=== PATIENT | female | born 1960 | race Caucasian/White ===

== ENCOUNTER 2022-01-24 12:30 | Outpatient (RCR) | payer BC, SELFPAY | END 2023-01-17 23:59 | disposition home or self-care (01) | PROVIDERS: Visit Provider Physician Assistant Medical | DX: R53.1 Weakness (principal); R26.9 Unspecified abnormalities of gait and mobility; Z51.89 Encounter for other specified aftercare | CPT/HCPCS: 97110; 97112; 97140; 97535; X5282 ==

== ENCOUNTER 2022-09-03 13:34 | Outpatient (CLI) | payer BC, SELFPAY ==
--- NOTE | 2022-09-03 13:40 | CRLHL7_ITS ---
For Patients: As a result of the Century Cures Act, medical imaging exams and procedure reports are released immediately into your electronic medical record. You may view this report before your referring provider. If you have questions, please contact your health care provider. BILATERAL SCREENING MAMMOGRAM WITH COMPUTER-AIDED DETECTION AND TOMOSYNTHESIS TECHNIQUE: CC and MLO views were obtained. These mammographic images have been obtained using full-field digital technique. These mammographic images were interpreted with the benefit of computer-aided detection. Breast Tomosynthesis was used in this interpretation. COMPARISON FILM: 05/04/20, 02/25/19, 01/02/18 FINDINGS: There are scattered areas of fibroglandular density IMPRESSION: There is no radiographic evidence for malignancy. ASSESSMENT: BI-RADS Category 1: Negative RECOMMENDATION: Routine screening mammogram in 1 year. A lay language report of this examination will be provided to the patient. Bayron Miles M.D. Diagnostic Radiologist [email or web address] Transcribed: 1:49 p.mAlexandria hall/Dictated by: Bayron Miles MD @ 09/04/2022 9:52:00 AM (Electronically Signed)
== END 2022-09-03 13:35 | disposition home or self-care (01) ==
LOC: MAMMO 13:35
PROVIDERS: PCP Physician Assistant Medical; Visit Provider Physician Assistant Medical
DX: Z12.31 Encounter for screening mammogram for malignant neoplasm of breast (principal)
CPT/HCPCS: 77063; 77067

== ENCOUNTER 2023-03-12 10:00 | Outpatient (RCR) | payer BC, SELFPAY | END 2023-06-12 13:39 | disposition home or self-care (01) | PROVIDERS: PCP Physician Assistant Medical; Visit Provider Family Medicine | DX: M54.6 Pain in thoracic spine (principal); R07.81 Pleurodynia; Z74.09 Other reduced mobility; R53.1 Weakness; Z51.89 Encounter for other specified aftercare | CPT/HCPCS: 97110; 97140; 97161 ==

== ENCOUNTER 2023-10-14 14:32 | Outpatient (CLI) | payer BC, SELFPAY ==
--- NOTE | 2023-10-14 14:40 | MM_ITS ---
Patient: ALMA BEAM Facility:?[facility] Patient ID:?[id number] Site Patient ID:?[id number]. Site :?[id number] Study:?XRay-Breast Bilateral 3D W/CAD-10/14/2023 2:57:20 PM Ordering Physician:?Rebekah Rivas Final Report: BILATERAL SCREENING MAMMOGRAM WITH COMPUTER-AIDED DETECTION AND TOMOSYNTHESIS TECHNIQUE: CC and MLO views were obtained. These mammographic images have been obtained using full-field digital technique. These mammographic images were interpreted with the benefit of computer-aided detection. Breast Tomosynthesis was used in this interpretation. COMPARISON FILM: 09/03/22, 05/04/20, 02/25/19. FINDINGS: There are scattered areas of fibroglandular density. IMPRESSION: There is no radiographic evidence for malignancy. ASSESSMENT: BI-RADS Category 1: Negative RECOMMENDATION: Routine screening mammogram in 1 year. A lay language report of this examination will be provided to the patient. Bayron Miles M.D. Diagnostic Radiologist [email or web address] DSM/sp R& Transcribed: 2:13 p.m. SP/Dictated by: Bayron Miles MD @ 10/15/2023 8:42:00 AM Signed by:?Bayron Miles MD @10/15/2023 2:34:23 PM (Electronic Signature)
== END 2023-10-14 14:33 | disposition home or self-care (01) ==
LOC: MAMMO 14:33
PROVIDERS: PCP Physician Assistant Medical; Visit Provider Physician Assistant Medical
DX: Z12.31 Encounter for screening mammogram for malignant neoplasm of breast (principal)
CPT/HCPCS: 77063; 77067

== ENCOUNTER 2024-12-28 07:55 | Outpatient (CLI) | payer BC, SELFPAY ==
--- NOTE | 2024-12-28 08:15 | CRLHL7_ITS ---
For Patients: As a result of the Century Cures Act, medical imaging exams and procedure reports are released immediately into your electronic medical record. You may view this report before your referring provider. If you have questions, please contact your health care provider. INDICATION: BILATERAL SCREENING MAMMOGRAM, ASYMPTOMATIC 64 Y/O FEMALE COMPARISON: 10/04/2023, 09/03/2022, 05/04/2020 TECHNIQUE: Digital mammogram in CC and MLO projections including computer-aided detection (CAD) and tomosynthesis. BREAST COMPOSITION: There are scattered areas of fibroglandular density. FINDINGS: No suspicious findings. ASSESSMENT: BI-RADS 1 Negative RECOMMENDATION: Annual screening mammogram. A lay language report of this examination will be provided to the patient. Dictated by: Bayron Miles MD @ 12/28/2024 09:04:33 (Electronically Signed)
--- OUTSIDE RECORDS SUMMARY | 2024-12-29 02:05 | XMS_ITS | Clinical Summary ---
Author Organization [employer] Address [address] [place] [address] Care Team Providers Care Portrait Studio Photographer Name Role Phone Rebekah Rivas Primary Care Provider Beni Enrique MD Unavailable [phone] Caleb Cheatham MD Unavailable [phone] Allergies Active Allergy Reactions Criticality Noted Date Comments Clavulanic Acid Nausea And Vomiting 12/09/2015 Codeine Nausea And Vomiting 11/01/2006 Pill form only. Patient can take syrup Lisinopril Cough High 11/09/2020 Tree Nuts Anaphylaxis High 12/09/2015 Medications MULTIVITAMIN ORAL None Entered Active fluticasone (50 mcg per actuation) nasal solution (FLONASE)Indicat ions:Seasonal allergic rhinitis, unspecified allergic rhinitis trigger Inhale 1 [place] into both nostrils once daily. 3 Bottle 3 10/23/19 17 Active ALPRAZolam (XANAX) 0.5 mg tabletIndication s:Adjustment disorder with mixed disturbance of emotions and conduct Take 1 tablet by mouth 2 times daily if needed for Anxiety or Other (Specify) (sleep). 15 Tablet 1 02/29/20 22 Active albuterol HFA (PRO-AIR; VENTOLIN; PROVENTIL) 90 mcg/actuation inhalerIndicatio ns:COPD exacerbation (HC) INHALE 2 PUFFS BY MOUTH 4 TIMES A DAY NEEDED 6.7 Each 2 02/12/20 23 Active gabapentin 100 mg capsuleIndicatio ns:Neuropathy Take 2 Capsules (200 mg) by mouth two times daily. 360 Capsule 3 11/05/19 25 Active levothyroxine 75 mcg tabletIndication s:Hypothyroidism (acquired) Take 1 Tablet (75 mcg) by mouth before breakfast. Take 1 tablet (75 mcg) 5 days a week 90 Tablet 3 11/05/19 25 Active losartan 100 mg tabletIndication s:Hypertension, unspecified type Take 1 Tablet (100 mg) by mouth once daily. 90 Tablet 3 11/05/19 25 Active omeprazole 40 mg Delayed-Release capsuleIndicatio ns:Gastroesophag eal reflux disease, unspecified whether esophagitis present Take 1 Capsule (40 mg) by mouth once daily. 90 Capsule 3 11/05/19 25 Active rivaroxaban (Xarelto) 20 mg tabletIndication s:Recurrent deep vein thrombosis (DVT) (HC) Take 1 Tablet (20 mg) by mouth once daily with evening meal. 90 Tablet 3 11/05/19 25 Active traZODone 100 mg tabletIndication s:Psychophysiolo gical insomnia Take 2 Tablets (200 mg) by mouth at bedtime. TAKE 1 & 1/2 TO 2 TABLETS BY MOUTH AT BEDTIME. 180 Tablet 1 12/22/19 25 Active amantadine HCL 100 mg tabletIndication s:Tardive dyskinesia Take 1 tablet in the morning and 2 tablets at bedtime. 270 Tablet 1 12/22/19 25 Active ziprasidone 40 mg capsuleIndicatio ns:Bipolar disorder, in full remission, most recent episode depressed (HC) Take 1 Capsule (40 mg) by mouth two times daily with meals. 180 Capsule 1 12/22/19 25 Active traZODone (DESYREL) 100 mg tabletIndication s:Psychophysiolo gical insomnia TAKE 1 & 1/2 TO 2 TABLETS BY MOUTH AT BEDTIME. 180 Tablet 1 06/22/20 24 025 Discontinued(*M edication adjustment) ziprasidone (GEODON) 40 mg capsuleIndicatio ns:Bipolar disorder, in full remission, most recent episode depressed (HC) Take 1 Capsule (40 mg) by mouth two times daily with meals. 180 Capsule 1 06/22/20 24 025 Discontinued(Re order (E-cancel not sent)) amantadine HCL 100 mg tabletIndication s:Tardive dyskinesia Take 1 tablet in the morning and 2 tablets at bedtime. 180 Tablet 10/17/19 25 025 Discontinued amantadine HCL 100 mg tabletIndication s:Tardive dyskinesia TAKE 1 TABLET IN THE MORNING AND 2 TABLETS AT BEDTIME 60 Tablet 2 12/22/19 25 025 Discontinued(Re order (E-cancel not sent)) Active Problems Problem Noted Date Diagnosed Date Controlled substance agreeme nt signed, By Payal Quijano MD, psychiatry on 08.24.2024 / Palomo Kerr LPN 08/24/2024 Overview (08/24/2024): Pneumonitis 07/27/2021 Chronic obstructive pulmonary disease 07/27/2021 Psychophysiological insomnia 03/17/2020 Controlled substance agreement signed 02/02/2020 Overview (02/02/2020): Signed 02/02/2020 at [facility]. Rachelle Allison .................... 02/02/2020 11:01 AM Lumbar facet arthropathy 02/14/2017 Steatosis of liver 09/05/2011 Colon polyp 01/26/2011 Overview (02/15/2023): Colonoscopy 01/2023 multiple TA, repeat in 2 years, propofol Nonalcoholic steatohepatitis (HOOK) 10/13/2009 Hypothyroidism 07/12/2009 Hypertension 07/12/2009 Hyperlipidemia 07/12/2009 Gastroesophageal reflux 07/12/2009 Bipolar disorder, in full re mission, most recent episode depressed 01/20/2007 Resolved Problems Problem Noted Date Diagnosed Date Resolved Date Phlebitis of superficial vei n of right lower extremity 07/27/2021 07/27/2021 Obstruction of parotid duct 07/27/2021 07/27/2021 Drug dependence 05/01/2021 07/19/2021 LUIS (generalized anxiety disorder) 03/17/2020 12/21/2024 Controlled substance agreement signed 10/25/2016 12/21/2021 Overview (10/25/2016): Signed: 07/25/2016 Dr. Payal Quijano / psychiatry Encounters Date Type Department Care Team Description 12/28/2024 Orders Only [facility] Scanner 1 scan: (1-Ord) [facility], SCREENING MAMMO BILAT, 12/28/2024 12/25/2024 Travel 12/21/2024 10:15 AM CDT Office Visit [facility] [address] [place] [address] Payal Quijano MD Follow Up; Medication Management 12/21/2024 Travel 12/19/2024 Refill [facility] [address] [place] [address] Payal Quijano MD Refill Request (Amantadine Hcl) 12/16/2024 Travel 11/30/2024 4:00 PM CDT Orders Only [facility] [address] [place] [address] Lab, [facility] 11/30/2024 Travel 11/19/2024 Orders Only [facility] [address] [place] [address] Caleb Cheatham MD <No scans attached> 11/12/2024 Telephone [facility] [address] [place] [address] Rebekah Rivas PA Referral (Urology ) 11/04/2024 9:10 AM CDT Office Visit [facility] [address] [place] [address] Rebekah Rivas PA Medication Management (All meds) 11/04/2024 Travel 10/30/2024 Travel 10/25/2024 Refill [facility] [address] [place] [address] Rebekah Rivas PA Refill Request (Levothyroxine) 10/15/2024 Refill [facility] [address] [place] [address] Payal Quijano MD Refill Request (Amantadine Hcl) from Last 3 Months Immunizations Immunization Administration Dates Next Due AMB Influenza, IIV3 (Age >=3 years)(Flu Clinic Only) 05/16/2010 COVID-19 vaccine ([employer] 30mcg/0.3mL) PF, MDV 05/01/2021,10/04/2020,09/13/2020 Influenza A (H1N1), Inactivated 07/12/2009 Influenza Virus, Unspecified 02/14/2018 Influenza, IIV3 (Age 6-35 mos) 07/03/2012,2010,07/12/2009 Influenza, IIV3 (Age >=3 years) 05/16/2010 Influenza, IIV4 05/01/2021, 0,03/25/2019,02/14,03/13/2017 Pneumococcal Conj 20-valent (Prevnar 20) 04/15/2024 Pneumococcal Poly,23-Valent (Pneumovax) 07/14/2007 RSV, Recombinant ADJ Reconst ituted (Arexvy 120MCG/0.5mL) 04/15/2024 Tdap 02/02/2020,01/31/2017,07/14/2007 Zoster (Shingrix-RZV, recombinant) 05/01/2021, Zoster (Zostavax-ZVL, live) 08/26/2012 Family History Medical History Relation Name Comments Cancer-breast Maternal Grandmother Cancer-breast Mother Anesthesia Problem Other Blood Disease No Family History Relation Name Status Comments Brother Alive Father Alive Maternal Grandmother Mother Alive Other Social History Tobacco Use Types Packs/Day Years Used Date Smoking Tobacco: Former Cigarettes 1 42.1 0 10/30/1979 - 11/19/2021 Smokeless Tobacco: Never Tobacco Cessation:Counseling Given: Yes Comments:quit 11-19-2021 Alcohol Use Standard Drinks/Week Comments Yes 2 (1 standard drink = 0.6 oz pur e alcohol) occ. PHQ-2 Answer Date Recorded PHQ-2 TOTAL SCORE 0 12/21/2024 Social Connections Answer Date Recorded Do you often feel lonely or isolated from those around you? 0 10/30/2024 Alcohol Use Answer Date Recorded How often do you have a drink containing alcohol ? 0 12/04/2021 Average Number of Drinks Not on file 022 Frequency of Binge Drinking Not on file 11/2021 Financial Resource Strain Answer Date R ecorded Difficulty of Paying Living Expenses 3 10/30/2024 Difficulty of Paying Living Expenses Not on file 10/30/2024 Food Insecurity Answer Date Recorded Do you worry your food will run out before you are able to buy more? 1 10/30/2024 Transportation Needs Answer Date Record ed Does lack of transportation keep you from medica l appointments? 1 10/30/2024 Does lack of transportation keep you from work, meetings or getting things that you need? 1 10/30/2024 Housing Stability Answer Date Recorded What is your housing situation today? 1 10/30/2024 Utilities Answer Date Recorded Do you have trouble paying f or utilities (for example, heat, electricity, water, phone)? 1 10/30/2024 Comments No Sex and Gender Information Value Date Recorded Sex Assigned at Not on file Legal Sex Female 6:14 AM BAGMAN/WOMAN Gender Identity Not on file Sexual Orientation Not on file Travel History Travel Start Travel End [place] 12/02/2024 12/13/2024 Obstetrics History Last Filed Vital Signs Vital Sign Reading Time Taken Comments Blood Pressure 144/89 12/21/2024 10:17 AM CDT Pulse 65 12/21/2024 10:17 AM CDT Temperature 36.7 C (98.1 F) 02/26/2023 8:17 AM CDT Respiratory Rate 16 02/12/2023 12:00 PM CDT Oxygen Saturation 99% 04/15/2024 7:37 AM CDT Inhaled Oxygen Concentration - - Weight 59.9 kg (132 lb) 12/21/2024 10:14 AM CDT Height 167.6 cm (5' 6) 08/24/2024 9:54 AM BAGMAN/WOMAN Body Mass Index 21.31 08/24/2024 9:54 AM BAGMAN/WOMAN Plan of Treatment Upcoming Encounters Date Type Department Care Team (Late st Contact Info) Description 12/30/2024 1:00 PM CDT Ancillary Procedure [facility] [address] [place] [address] 06/21/2025 9:45 AM BAGMAN/WOMAN Office Visit [facility] [address] [place] [address] Payal Quijano MD [address] [place] [address] Health Maintenance Due Date Last Done Comments COVID-19 vaccine series ( season) 2024 05/01/2021, 10/04/2020, 09/13/2020 Colonoscopy through age 75 02/12/202502/12, 02/12/2023, 02/12/2023, Additional history exists Influenza Vaccine (Season Ended) 2025 05/01/2021, 02/02/2020, 03/25/2019, Additional history exists BMI (ht and wt on same day) for age 18+ 08/24/2025 08/24/2024, 04/15/2024, 12/11/2023, Additional history exists Depression screening for age 12+ 12/21/2025 12/21/2024, 08/24/2024, 06/22/2024, Additional history exists Mammogram for age 45-75 12/28/2025 12/29/19, 10/14/2023, 09/03/2022, Additional history exists Pap test for age 21-65 05/01/2026 , 05/01/2021, 09/20/2015, Additional history exists Lipids for age 45-75 11/04/2029 11/04/2024, 07/08/2023, 09/05/2022, Additional history exists Tetanus booster 02/01/2030 02/02/2020, 080 08/2016, 07/14/2007 Hepatitis C screening for age 18-79 Completed 08/18/2019, 04/08/2018 Tdap Completed 02/02/2020, 080 08/2016, 07/14/2007 Zoster (shingles) series for age 50+ Completed 05/01/2021, 07/15/2018, 08/26/2012 HIV for age 15-65 Completed 02/26/2023 Pneumococcal series for age 50+ Completed 04/15/2024, 07/14/2007 RSV vaccine for adults or Completed 04/15/2024 Hepatitis B series for 19+ Aged Out N o longer eligible based on patient's age to complete this topic Procedures Procedure Name Priority Date/Time Associated Diagnosis Comments SCAN-MAMMOGRAPHY REPORT 12/28/2024 12:00 AM CDT PROTEIN ELP SERUM W REFLEX Routine 11/30/2024 4:01 PM CDT CKD stage 3a, GFR 45-59 ml/min (HC) Hypercalcemia UA W/ SEDIMENT EXAM REFLEXED PER CRITERIA Routine 11/30/2024 4:01 PM CDT CKD stage 3a, GFR 45-59 ml/min (HC) PTH,INTACT Routine 11/30/2024 3:51 PM CDT Hypercalcemia CALCITRIOL(1 25 DI OH VIT D) Routine 11/30/2024 3:51 PM CDT Hypercalcemia VITAMIN D 25 (DEFICIENCY) Routine 11/30/2024 3:51 PM CDT Hypercalcemia TSH Routine 11/04/2024 9:46 AM CDT LIPID PANEL W REFLEX MEASURED LDL Routine 11/04/2024 9:46 AM CDT Screening cholesterol level BASIC METABOLIC PANEL Routine 11/04/2024 9:46 AM CDT Hypertension, unspecified type ANTI HIV 1/2 Routine 02/26/2023 9:19 AM CDT Encounter for screening for human immunodeficiency virus (HIV) COLONOSCOPY 02/12/2023 10:01 AM CDT HPV HIGH RISK Routine 05/01/2021 11:12 AM CDT Screening for cervical cancer ANTI HCV Routine 08/18/2019 12:04 PM BAGMAN/WOMAN Neoplasm of uncertain behavior of skin Psoriasis vulgaris Encounter for long-term (current) use of other medications from Last 3 Months or Most Recently Relevant to Health Maintenance Results * SCAN-MAMMOGRAPHY REPORT (12/28/2024 12:00 AM CDT) Anatomical Region Laterality Modality Other us Scanner OTHER Final Result * PROTEIN ELP SERUM W REFLEX (11/30/2024 4:01 PM CDT) ELP,ALBUMIN 4.28 3.31 - 5.31 g/dL 12/02/2024 1:24 PM CDT [facility] ELP,ALPHA 1 0.24 0.19 - 0.42 g/dL 12/02/2024 1:24 PM CDT [facility] ELP,ALPHA 2 0.55 0.44 - 1.03 g/dL 12/02/2024 1:24 PM CDT [facility] ELP,GAMMA 0.69 0.59 - 1.46 g/dL 12/02/2024 1:24 PM CDT [facility] ELP,BETA 0.63 0.52 - 1.05 g/dL 12/02/2024 1:24 PM CDT [facility] ELP INTERP,SERUM Normal electrophoretic pattern. No monoclonal protein detected. Interpreted and electronically signed by: Janee Prater MD 12/02/2024 1:24 PM CDT [facility] PROTEIN,TOTA L 6.4 6.0 - 8.0 g/dL 12/02/2024 1:24 PM CDT [facility] Blood BLOOD SPECIMEN / Unknown [facility] / Unknown 11/30/2024 4:01 PM CDT 11/30/2024 4:01 PM CDT us Caleb Cheatham MD CHEMISTRY Final Resu lt [facility] [address] [place] [address], * (ABNORMAL) ROUTINE URINALYSIS (11/30/2024 4:01 PM CDT) COLOR Yellow Yellow Color 11/30/2024 11:35 PM CDT [facility] CLARITY Clear Clear Clarity 11/30/2024 11:35 PM CDT [facility] SPECIFIC GRAVITY,URINE <=1.005(A) 1.010, 1.015, 1.020, 1.025 11/30/2024 11:35 PM CDT [facility] PH,URINE 6.5 6.0, 7.0, 8.0, 5.5, 6.5, 7.5, 8.5 11/30/2024 11:35 PM CDT [facility] UROBILINOGEN, QUALITATIVE Normal Normal EU/dl 11/30/2024 11:35 PM CDT [facility] PROTEIN, URINE Negative Negative mg/dL 11/30/2024 11:35 PM CDT [facility] GLUCOSE, URINE Negative Negative mg/dL 11/30/2024 11:35 PM CDT [facility] KETONES,URINE Negative Negative mg/dL 11/30/2024 11:35 PM CDT [facility] BILIRUBIN,URI NE Negative Negative 11/30/2024 11:35 PM CDT [facility] OCCULT BLOOD,URINE Negative Negative 11/30/2024 11:35 PM CDT [facility] NITRITE Negative Negative 11/30/2024 11:35 PM CDT [facility] LEUKOCYTE ESTERASE Negative Negative 11/30/2024 11:35 PM CDT [facility] Urine URINE SPECIMEN / Unknown Non-Blood / Unknown 11/30/2024 4:01 PM CDT 11/30/2024 4:01 PM CDT us Caleb Cheatham MD URINE Final Resu lt [facility] [address] [place] [address], * CALCITRIOL(1 25 DI OH VIT D) (11/30/2024 3:51 PM CDT) VITAMIN D, 1,25 (OH)2, TOTAL 42 18 - 72 pg/mL [facility] VITAMIN D3, 1,25 (OH)2 42 pg/mL [facility] VITAMIN D2, 1,25 (OH)2 <8 pg/mL [facility] Comment: (Note) Vitamin D3, 1,25(OH)2 indicates both endogenous production and supplementation. Vitamin D2, 1,25(OH)2 is an indicator of exogenous sources, such as diet or supplementation. Interpretation and therapy are based on measurement of Vitamin D, 1,25 (OH)2, Total. This test was developed, and its analytical performance characteristics have been determined by [facility]. It has not been cleared or approved by the FDA. This assay has been validated pursuant to the CLIA regulations and is used for clinical purposes. For additional information, please refer to http://education.[employer]/faq/SBR110 (This link is being provided for informational/educational purposes only.) [facility] [address] [place] [address],[address] [place] [address] Betzaida Chadwick MD, PhD Blood BLOOD SPECIMEN / Unknown 11/30/2024 3:51 PM CDT 11/30/2024 3:51 PM CDT Caleb Cheatham MD SEND OUTS Final Resu lt [facility] [address] [place] [id number], [facility] [address] [place] [address], [address] [place] [address] * (ABNORMAL) VITAMIN D 25 (DEFICIENCY) (11/30/2024 3:51 PM CDT) VITAMIN D,25-OH,TOTAL,IA 28(L) 30 - 100 ng/mL [facility] Comment: Vitamin D Status 25-OH Vitamin D: Deficiency: <20 ng/mL Insufficiency: 20 - 29 ng/mL Optimal: > or = 30 ng/mL For 25-OH Vitamin D testing on patients on D2-supplementation and patients for whom quantitation of D2 and D3 fractions is required, the QuestAssureD(TM) 25-OH VIT D, (D2,D3), LC/MS/MS is recommended: order code [id number] (patients >2yrs). See Note 1 Note 1 For additional information, please refer to http://education.[employer]/faq/ISJ891 (This link is being provided for informational/ educational purposes only.) Blood BLOOD SPECIMEN / Unknown 11/30/2024 3:51 PM CDT 11/30/2024 3:51 PM CDT Caleb Cheatham MD SEND OUTS Final Resu lt Performing Organization Address City/[facility]/ZIP Co de Phone Number [facility] [address] [place] [address], [place] [phone] [facility] [address] [place] [address] * PTH,INTACT (11/30/2024 3:51 PM CDT) PARATHYROID HORMONE, INTACT 72 16 - 77 pg/mL [facility] Comment: Interpretive Guide Intact PTH Calcium ------- Normal Parathyroid Normal Normal Hypoparathyroidism Low or Low Normal Low Hyperparathyroidism Primary Normal or High High Secondary High Normal or Low Tertiary High High Non-Parathyroid Hypercalcemia Low or Low Normal High CALCIUM 10.2 8.6 - 10.4 mg/dL [facility] Blood BLOOD SPECIMEN / Unknown 11/30/2024 3:51 PM CDT 11/30/2024 3:51 PM CDT Caleb Cheatham MD SEND OUTS Final Resu lt Performing Organization Address [facility]/ZIP Co de Phone Number [facility] [address] [place] [address], [place] [phone] [facility] [address] [place] [address] * (ABNORMAL) LIPID PANEL W REFLEX MEASURED LDL (11/04/2024 9:46 AM CDT) CHOLESTEROL, TOTAL 214(H) <200 mg/dL [facility] HDL CHOLESTEROL 95 > OR = 50 mg/dL [facility] TRIGLYCERIDES 64 <150 mg/dL [facility] LDL-CHOLESTEROL 104(H) mg/dL (calc) [facility] Comment: Reference range: <100 Desirable range <100 mg/dL for primary prevention; <70 mg/dL for patients with CHD or diabetic patients with > or = 2 CHD risk factors. LDL-C is now calculated using the Dominga calculation, which is a validated novel method providing better accuracy than the Friedewald equation in the estimation of LDL-C. Moi SS et al. MAUREEN. 2013;310(19): 2825-9728 (http://education.[employer]/faq/AZQ043) CHOL/HDLC RATIO 2.3 <5.0 (calc) [facility] NON HDL CHOLESTEROL 119 <130 mg/dL (calc) [facility] Comment: For patients with diabetes plus 1 major ASCVD risk factor, treating to a non-HDL-C goal of <100 mg/dL (LDL-C of <70 mg/dL) is considered a therapeutic option. Blood BLOOD SPECIMEN / Unknown 11/04/2024 9:46 AM CDT 11/04/2024 9:47 AM CDT Rebekah BRUNO CHEMISTRY Final R esult [facility] [address] [place] [address], [facility] [address] [place] [address] * TSH (11/04/2024 9:46 AM CDT) Pathologist [facility] TSH 0.59 0.40 - 4.50 mIU/L [facility] 11/04/2024 9:46 AM CDT 11/04/2024 9:47 AM CDT Rebekah BRUNO CHEMISTRY Final R esult Performing Organization Address City/[facility]/ZIP Co de Phone Number [facility] [address] [place] [address], [place] [phone] [facility] [address] [place] [address] * (ABNORMAL) BASIC METABOLIC PANEL (11/04/2024 9:46 AM CDT) [facility] GLUCOSE 95 65 - 99 mg/dL [facility] Comment: Fasting reference interval UREA NITROGEN (BUN) 18 7 - 25 mg/dL [facility] CREATININE 1.19(H) 0.50 - 1.05 mg/dL [facility] EGFR 51(L) > OR = 60 mL/min/1.7 3m2 [facility] BUN/CREATININE RATIO 15 6 - 22 (calc) [facility] SODIUM 143 135 - 146 mmol/L [facility] POTASSIUM 4.5 3.5 - 5.3 mmol/L [facility] CHLORIDE 107 98 - 110 mmol/L [facility] CARBON DIOXIDE 28 20 - 32 mmol/L [facility] ELECTROLYTE BALANCE 8 7 - 17 mmol/L (calc) [facility] CALCIUM 10.2 8.6 - 10.4 mg/dL [facility] Blood BLOOD SPECIMEN / Unknown 11/04/2024 9:46 AM CDT 11/04/2024 9:47 AM CDT Rebekah BRUNO CHEMISTRY Final R esult [facility] [address] [place] [address], [place] [phone] [facility] [address] [place] [address] * ANTI HIV 1/2 [26905.0] (02/26/2023 9:19 AM CDT) HIV-1/HIV-2 SCREEN Non-Reacti ve Non-Reacti ve 02/27/2023 3:25 AM CDT [facility] Comment:HIV-1 p24 and HIV-1/ HIV-2 Ab Not Detected. Blood BLOOD SPECIMEN / Unknown Venipuncture / Unknown 02/26/2023 9:19 AM CDT 02/26/2023 9:20 AM CDT us Ginette BRUNO SEND OUTS Final Res ult [facility] [address] [place] [address], [place] * COLONOSCOPY (02/12/2023 10:01 AM CDT) 02/12/2023 10:0 1 AM CDT Narrative Transcriptions Moi Washington MD - 03/15/2023 9:38 AM CDT Patient Name: Anaya Beam Procedure Date: 02/12/2023 Gender: Female Date of : 1960 Admit Type: Outpatient Procedure: Colonoscopy Proceduralist: Moi Washington MD , Mary Santos (Nurse), Vicki Denton (Nurse) Referring MD: Rebekah Rivas Indications/Pre-Op Diagnosis: Positive fecal immunochemical test, Last colonoscopy: August 2015, Personal history of colonic polyps Medications: Fentanyl 100 micrograms IV, Midazolam 2 mgIV, The level of sedation administered wasmoderate Procedure Description: The patient had risks, benefits and alternatives explained to andgave informed consent. The patient had a stable cardiopulmonary status and judged an adequate candidate for conscious sedation. The PCF-H190L [id number] was passed through the anus and advanced to the cecum, identified by appendiceal orifice and ileocecal valve. The colonoscopy was performed without difficulty. The patient toleratedthe procedure well. The quality of the bowel preparation was good. The ileocecal valve, appendiceal orifice, and rectum were photographed. Complications: No immediate complications. Estimated Blood Loss & Specimen: Estimated blood loss: none. Specimen collected - Yes and sent to Laboratory Findings: The perianal and digital rectal examinations were normal. A 10 mm polyp was found in the cecum. The polyp was sessile. Thepolyp was removed with a hot snare. The polyp was removed with a saline injection-lift technique using a hot snare. Resection and retrievalwere complete. Three sessile polyps were found in the ascending colon. The polypswere 10 to 12 mm in size. These polyps were removed with a hot snare. Resection and retrieval were complete. Five sessile polyps were found in the ascending colon. The polypswere 3 to 4 mm in size. These polyps were removed with a cold snare.Resection and retrieval were complete. Three sessile polyps were found in the descending colon. The polypswere 8 to 12 mm in size. These polyps were removed with a hot snare. Resection and retrieval were complete. Two sessile polyps were found in the descending colon. The polypswere 4 mm in size. These polyps were removed with a cold snare. Resectionand retrieval were complete. Scattered small and large-mouthed diverticula were found in thesigmoid colon. A diffuse area of mild melanosis was found in the entire colon. The exam was otherwise without abnormality. Impressions/Post-Op Diagnosis: - One 10 mm polyp in the cecum, removed with a hot snare and removed using injection-lift and a hot snare. Resected and retrieved. - Three 10 to 12 mm polyps in the ascending colon, removed with a hot snare. Resected and retrieved. - Five 3 to 4 mm polyps in the ascending colon, removed with a cold snare. Resected and retrieved. - Three 8 to 12 mm polyps in the descending colon, removed with a hot snare. Resected and retrieved. - Two 4 mm polyps in the descending colon, removed with a cold snare. Resected and retrieved. - Diverticulosis in the sigmoid colon. - Melanosis in the colon. - The examination was otherwise normal. Recommendation: - Patient has a contact number available for emergencies. The signsand symptoms of potential delayed complications were discussed with the patient. Return to normal activities tomorrow. Written discharge instructions were provided to the patient. - Resume previous diet. - Continue present medications. - Await pathology results. - Repeat colonoscopy in 2 years for surveillance. - Patient's sedation for a repeat study will require Anesthesia staff assistance. - Avoid heavy lifting greater than 30 lbs., asprin/ nonsteroidal medicines, exercise and strenuous activity for 2 weeks. Moderate Sedation: A time out was performed before the procedure. Moderate (conscious) sedation was administered by the endoscopy nurse and supervised bythe endoscopist. The following parameters were monitored: oxygensaturation, heart rate, blood pressure, EKG, CO2, respiratory rate, adequacy of pulmonary ventilation and reponse to care. Please refer to the patient's medical record flowsheets and nursing notes for moderate sedation details. Total physician intraservice time was 50 minutes. Moi Washington MD 02/12/2023 11:44:57 AM This report has been signed electronically. Note Initiated On: 02/12/2023 10:01 AM Procedure Code(s): --- Professional --- 40775, Colonoscopy, flexible; with removalof tumor(s), polyp(s), or other lesion(s) bytana technique 87423, Colonoscopy, flexible; with directed submucosal injection(s), any substance Diagnosis Code(s): --- Professional --- D12.0, Benign neoplasm of cecum D12.2, Benign neoplasm of ascending colon D12.4, Benign neoplasm of descending colon K63.89, Other specified diseases ofintestine R19.5, Other fecal abnormalities Z86.010, Personal history of colonicpolyps K57.30, Diverticulosis of large intestine without perforation or abscess withoutbleeding CPT copyright 2021 [employer]. All rights reserved. The codes documented in this report are preliminary and upon kidney puller reviewmay be revised to meet current compliance requirements. Scope In: 10:43:28 AM Scope Withdrawal Time 0 hours 40 minutes 54 seconds Scope Out: 11:31:35 AM us Moi Washington MD PROCEDURE ORD Edited Re sult - Final * HPV HIGH RISK (05/01/2021 11:12 AM CDT) TYPE 16 Negative Negative 05/03/2021 11:44 AM CDT [facility] TYPE 18 Negative Negative 05/03/2021 11:44 AM CDT [facility] OTHER HIGH RISK TYPES Negative Negative 05/03/2021 11:44 AM CDT [facility] Other (Cervical) Non-Blood / Unknown 05/01/2021 11:12 AM CDT 05/01/2021 3:17 PM CDT Narrative [facility] - 05/03/2021 11:44 AM CDT HPV types 16, 18, 31, 33, 35, 39, 45, 51, 52, 56, 58, 59, 66 and 68 DNA were undetectable or below the pre-set threshold. Methodology: Deshaun Hayden 4800 HPV Test Rowan Olivares MD MICROBIOLOGY Fin al Result [facility] [address] [place] [address], * ANTI HCV (08/18/2019 12:04 PM BAGMAN/WOMAN) HEPATITIS C ANTIBODY Non-React charley Non-React charley 08/18/2019 6:17 PM BAGMAN/WOMAN [facility] Comment:Antibodies to HCV no t detected; does not exclude the possibility of exposure to HCV. Blood BLOOD SPECIMEN / Unknown Venipuncture / Unknown 08/18/2019 12:04 PM [facility]/WOMAN 08/18/2019 12:04 PM BAGMAN/WOMAN us Rebekah BRUNO SEND OUTS Final R esult [facility] [address] [place] [address], [place] from Last 3 Months or Most Recently Relevant to Health Maintenance Insurance [employer] Care Teams Portrait Studio Photographer Relationship Specialty Start Date End Date Rebekah Rivas PA [address] [place] [address] PCP - General Family Practice 07/10/16 Beni Enrique MD [address] [place] [address] Rheumatology Rheumatology 12/24/19 Caleb Cheatham MD [address] [place] [address] Consulting Physician Nephrology 11/18/24
== END 2024-12-28 07:56 | disposition home or self-care (01) ==
LOC: MAMMO 07:55
PROVIDERS: PCP Physician Assistant Medical; Visit Provider Physician Assistant Medical
DX: Z12.31 Encounter for screening mammogram for malignant neoplasm of breast (principal)
CPT/HCPCS: 77063; 77067

== ENCOUNTER 2025-02-19 10:02 | Outpatient (CLI) | payer BC, SELFPAY ==
--- NOTE | 2025-02-19 12:09 | P.ANES_ITS ---
Anesthesia Charges Start Date/Time Anesthesia Start Date: 02/19/25 Anesthesia Start Time: 11:32 Stop Date/Time Anesthesia Stop Date: 02/19/25 Anesthesia Stop Time: 12:07 Coding CPT Codes CPT Codes: ANES LWR INTST SCR COLSC - 94011 ([id number]) P3 - PATIENT W/SEVERE SYS DISEASE, QK - TEACHER DRAMATICS 2-4 CNCRNT ANES PROC, QX - ANALYSIS CONSULTANT SVC W/ MD MED DIRECTION
--- NOTE | 2025-02-19 12:09 | W.ANESCHARGE ---
Anesthesia Charges Start Date/Time Anesthesia Start Date: 02/19/25 Anesthesia Start Time: 11:32 Stop Date/Time Anesthesia Stop Date: 02/19/25 Anesthesia Stop Time: 12:07 Coding CPT Codes CPT Codes: ANES LWR INTST SCR COLSC - 09003 ([id number]) P3 - PATIENT W/SEVERE SYS DISEASE, QK - ACCOUNTING COORDINATOR 2-4 CNCRNT ANES PROC, QX - SUEDING MACHINE OPERATOR SVC W/ MD MED DIRECTION
--- NOTE | 2025-02-19 12:12 | P.ANES_ITS ---
Anesthesia Charges Start Date/Time Anesthesia Start Date: 02/19/25 Anesthesia Start Time: 11:32 Stop Date/Time Anesthesia Stop Date: 02/19/25 Anesthesia Stop Time: 12:07 Coding CPT Codes CPT Codes: ANES LWR INTST SCR COLSC - 68275 ([id number]) QK - WINDOW SASH INSTALLER 2-4 CNCRNT ANES PROC, QX - SUPERVISOR PLASTERING SVC W/ MED DIRECTION, P3 - PATIENT W/SEVERE SYS DISEASE
--- NOTE | 2025-02-19 12:12 | W.ANESCHARGE ---
Anesthesia Charges Start Date/Time Anesthesia Start Date: 02/19/25 Anesthesia Start Time: 11:32 Stop Date/Time Anesthesia Stop Date: 02/19/25 Anesthesia Stop Time: 12:07 Coding CPT Codes CPT Codes: ANES LWR INTST SCR COLSC - 26191 ([id number]) QK - STEM TEACHER 2-4 CNCRNT ANES PROC, QX - INFRASTRUCTURE ANALYST SVC W/ MED DIRECTION, P3 - PATIENT W/SEVERE SYS DISEASE
== END 2025-02-19 10:03 | disposition home or self-care (01) ==
LOC: OP CLINIC 10:05
PROVIDERS: PCP Physician Assistant Medical; Visit Provider Internal Medicine Gastroenterology
DX: Z12.11 Encounter for screening for malignant neoplasm of colon (principal); Z86.0101 Personal history of adenomatous and serrated colon polyps; D12.8 Benign neoplasm of rectum; K63.89 Other specified diseases of intestine
CPT/HCPCS: 00812; 45380; J2704